=== PATIENT | female | born 1955 | race Two or more races ===

== ENCOUNTER 2016-05-19 19:15 | Emergency (ER) | payer MEDICAID, OTHER ==
[~2016-05-19] VITALS: Ht 162.6 cm; Wt 72.6 kg
[~2016-05-19 19:15] MED LIST: ALBUTEROL SULF8.5 GM INH; GUAIFENESIN AC473 ML ORAL; MEDROL DOSEPAK4 MG ORAL; TRAMADOL HCL50 MG ORAL; VENTOLIN HFA18 GM INH; ZITHROMAX250 MG ORAL
[2016-05-19] MEDS ORDERED: Augmentin 875mg Tab ORAL ONE (19:45)
[2016-05-19] MEDS ORDERED: Bacitracin Oint UD TOPIC ONE (19:45)
[2016-05-19] MEDS ORDERED: TdaP Vaccine 0.5ml Syr IM ONE (19:45)
[2016-05-19 20:02] VITALS: BP 135/79
--- NOTE | 2016-05-19 20:23 | Emergency Room Report ---
History of Present Illness General Chief Complaint: Animal Bite Present Illness HPI 61-year-old female presents emergency department complaining of localized 8/10 pain, swelling and erythema to the right thumb since yesterday status post dog bite. Patient states she was bit by an unknown dog. Patient does not know when her last tetanus vaccination was. Patient is right-hand dominant. Patient denies fevers or chills. Patient reports tenderness to the right thumb as well as bruising. Denies numbness tingling or loss of sensation or gross motor movements of the extremities, incontinence of bowel or bladder. Denies CP , Palpitations, LOC, AMS, dizziness, Changes in Vision, Sensation, paresthesias , or a sudden severe headache. (Jenny Nair P.AWen) Allergies: Coded Allergies: LATEX (Unverified Allergy, Unknown, rash, 04/21/15) Patient History Past Medical History: see triage record Past Surgical History: none Pertinent Family History: none Last Menstrual Period: 2003 Now: No : 2 Reviewed Nursing Documentation: PMH: Agreed, PSxH: Agreed (Jenny Nair) Nursing Documentation-PMH Hx Asthma: Yes History Of Psychiatric Problem: Yes - DEPRESSION (Jenny Nair PWenAWen) Review of Systems All Other Systems: negative except mentioned in HPI (Jenny Nair P.Ángela) Physical Exam Vital Signs Date Time Temp Pulse Resp B/P Pulse Ox O2 Delivery O2 Flow Rate FiO2 05/19/16 19:23 97.3 70 14 135/79 100 Room Air Sp02 EP Interpretation: reviewed, normal General Appearance: no apparent distress, alert, GCS 15, non-toxic Head: normocephalic, atraumatic Eyes: bilateral eye PERRL, bilateral eye normal inspection ENT: hearing grossly normal, normal pharynx, no angioedema, normal voice Neck: full range of motion, supple/symm/no masses Respiratory: lungs clear, normal breath sounds, speaking full sentences Cardiovascular #1: regular rate, rhythm, no edema Musculoskeletal: back normal, gait/station normal, normal range of motion, no calf tenderness, swelling - right thumb, tender - TTP to the right thumb and the base of the left thumb, bruising noted, two puncture wounds 0.5cm each, erythema and inflammation, FROM with pain. Neurologic: alert, oriented x3, responsive, motor strength/tone normal, sensory intact, speech normal Psychiatric: judgement/insight normal, memory normal, mood/affect normal, no suicidal/homicidal ideation Skin: no rash, warm/dry, well hydrated, other - left thumb: swelling, bruising noted, two puncture wounds 0.5cm each, erythema and inflammation, FROM with pain. Lymphatic: no adenopathy (Jenny Nair) Medical Decision Making PA Attestation Dr. Pruett is my supervising Physician whom patient management has been discussed with. (Jenny Nair PWenAWen) Diagnostic Impression: Primary Impression: Dog bite of finger Qualified Codes: S61.259A - Open bite of unspecified finger without damage to nail, initial encounter; W54.0XXA - Bitten by dog, initial encounter Additional Impression: Animal bite of right hand with infection Qualified Codes: S61.451A - Open bite of right hand, initial encounter; L08.9 - Local infection of the skin and subcutaneous tissue, unspecified ER Course 61-year-old female presents emergency department complaining of pain swelling and erythema to the right thumb since yesterday status post dog bite. Patient states she was bit by an unknown dog. Patient does not know when her last tetanus vaccination was. Patient is right-hand dominant. Patient denies fevers or chills. Patient reports tenderness to the right thumb as well as bruising Ddx considered but are not limited to Cellulitis, rabies, fracture, neurovascular compromise of extremity. Vital signs: are WNL, pt. is afebrile H&PE are most consistent with dog bite, mild infection. ORDERS: -High pressure wound irrigation - Xray Hand 3 views: No fracture, dislocation, or soft tissue injury per soft read in the ED by Dr. Pruett ED INTERVENTIONS: -Tetanus vaccination is administered. -Augmentin 875 PO - Bacitracin and light wound dressing applied by RN. - Documentation to report animal bite was filled out by Pt. and given to RN. * D/w pt. signs that wound indicate worsening of infection, that would require prompt return to the ED and IV ABX. - pt. verbalizes her understanding and agreement. DISCHARGE: At this time pt. is stable for d/c to home. Will provide printed patient care instructions, and any necessary prescriptions. Care plan and follow up instructions have been discussed with the patient prior to discharge. * Augmentin x 7 days. (Jenny Nair) ER Course Scribe documentation reviewed by me and is accurate. (Devan Pruett M.D.) Last Vital Signs Date Time Temp Pulse Resp B/P Pulse Ox O2 Delivery O2 Flow Rate FiO2 05/19/16 20:02 97.3 70 14 135/79 100 Room Air (Jenny Nair) Disposition: HOME, SELF-CARE Condition: Stable Scripts Ibuprofen* (MOTRIN*) 600 Mg Tablet 600 MG ORAL THREE TIMES A DAY, #30 TAB 0 Refills Prov: Jenny Nair 05/19/16 Amoxicillin/Potassium Clav 875-125* (AUGMENTIN 875-125 TABLET*) 1 Each Tablet 1 TAB ORAL TWICE A DAY for 7 Days, #14 TAB Prov: Jenny Nair 05/19/16 Patient Instructions: Animal Bite Additional Instructions: Take medications as directed. Follow up with PCP in 3-5 days Return sooner to ED if new symptoms occur, or current symptoms become worse. - Please note that this Emergency Department Report was dictated using [employer] analyst technology software, occasionally this can lead to erroneous entry secondary to interpretation by the dictation equipment. Jenny Nair May 19, 2016 20:23 Devan Pruett M.D. May 23, 2016 01:24
[2016-05-19] MEDS ORDERED: AUGMENTIN 875-1 EAC1 ORAL (20:47)
[2016-05-19] MEDS ORDERED: IBUPROFEN600 MG ORAL (20:47)
[2016-05-19 21:12] VITALS: BP 135/79
--- NOTE | 2016-05-20 12:28 | Diagnostic Imaging Report ---
Indication: PAIN Technique: 3 views right hand Comparison: none Findings: No acute fractures. There is equivocal slight subluxation of the first interphalangeal joint. Ossific density adjacent to the first proximal phalanx appears corticated, is probably old, may reflect prior injury. The joint spaces are preserved. Impression: No acute bony trauma Equivocal slight subluxation of the first interphalangeal joint.
== END 2016-05-19 21:13 | disposition home or self-care (01) ==
LOC: EMR 19:55
DX: S61.031A Puncture wound without foreign body of right thumb without damage to nail, initial encounter (principal); W54.0XXA Bitten by dog, initial encounter; Y92.9 Unspecified place or not applicable; Z23 Encounter for immunization; J45.909 Unspecified asthma, uncomplicated; F32.9 Major depressive disorder, single episode, unspecified; Z91.040 Latex allergy status
CPT/HCPCS: 90471; 90715; 99284

== ENCOUNTER 2017-03-31 20:04 | Inpatient (IN) | payer MEDICAID ==
[~2017-03-31] VITALS: Ht 162.6 cm; Wt 74.8 kg
[~2017-03-31 20:04] MED LIST changes: +AUGMENTIN 875-1 EAC1 ORAL; +IBUPROFEN600 MG ORAL
[2017-03-31] MEDS ORDERED: Sodium Chloride 500ML 500 ML IV ONE (20:58)
[2017-03-31 21:00] VITALS: BP 123/82
[2017-03-31] MEDS ORDERED: Morphine Sulfate 4mg/ml Inj IVP ONE (21:00)
--- NOTE | 2017-03-31 21:44 | Emergency Room Report ---
History of Present Illness General Chief Complaint: Abdominal Pain Source: Patient Present Illness HPI 61-year-old female presents ED complaining of left-sided abdominal pain started 3 days ago. Pain is a 10 out of 10. sharp. nonradating. Denies fevers chills. Denies chest pain or shortness of breath. Denies vomiting or diarrhea. No other aggravating or leading factors. Denies any other associated Allergies: Coded Allergies: LATEX (Unverified Allergy, Unknown, rash, 04/21/15) Patient History Past Medical History: asthma Past Surgical History: none Pertinent Family History: none Social History: Denies: smoking, alcohol use, drug use Last Menstrual Period: NA Now: No Immunizations: UTD Reviewed Nursing Documentation: PMH: Agreed, PSxH: Agreed Nursing Documentation-PMH Hx Asthma: Yes Review of Systems All Other Systems: negative except mentioned in HPI Physical Exam Vital Signs Date Time Temp Pulse Resp B/P (MAP) Pulse Ox O2 Delivery O2 Flow Rate FiO2 03/31/17 20:22 98.1 65 18 123/82 98 Room Air Sp02 EP Interpretation: reviewed, normal General Appearance: no apparent distress, alert, GCS 15, non-toxic Head: normocephalic Eyes: bilateral eye normal inspection, bilateral eye PERRL ENT: normal ENT inspection Neck: normal inspection Respiratory: chest non-tender, lungs clear, normal breath sounds, speaking full sentences Cardiovascular #1: regular rate, rhythm, no edema Gastrointestinal: normal bowel sounds, soft, non-distended, no guarding, no rebound, tenderness - LUQ Rectal: deferred Genitourinary: CVA tenderness (L) Musculoskeletal: normal inspection Neurologic: alert, oriented x3, responsive, motor strength/tone normal, sensory intact, speech normal Psychiatric: normal inspection Skin: normal inspection Lymphatic: normal inspection Medical Decision Making Diagnostic Impression: Primary Impression: Internal hernia Additional Impressions: Abdominal pain Qualified Codes: R10.9 - Unspecified abdominal pain S/P gastric bypass ER Course Hospital Course 61-year-old female presents to ED complaining of abdominal pain Differential diagnoses include: BPH, cystitis, pyelonephritis, kidney stone Clinical course Patient placed on stretcher. traffic monitor specialist. After initial history and physical I ordered labs, IV fluids, UA, pain medication and CT scan Labs - no leukocytosis, Hb/Hct stable, electrolytes ok CT abdomen and pelvis - s/p gastric bypass, evidence of internal hernia. dilated segments of bowel discussed findings with Dr. Jose (surgery); agrees that patient requires admission - will consult patient made NPO Case discussed with Dr. Hernandez and he agreed to accept the patient to his service for further care and support I feel this is a highly complex case requiring extensive working including EKG/ Rhythm strip, Xray/CT/US, Blood/urine lab work, repeat exams while in ED, and administration of strong opiates/narcotics for pain control, admission to hospital or close patient follow up. Diagnosis - internal hernia, abdominal pain, s/p gastric bypass Patient admitted to floor in serious condition Labs Test 03/31/17 20:25 03/31/17 21:56 Urine Color Pale yellow Urine Appearance Clear Urine pH 5 (4.5-8.0) Urine Specific [place] 1.020 (1.005-1.035) Urine Protein Negative (NEGATIVE) Urine Glucose (UA) Negative (NEGATIVE) Urine Ketones Negative (NEGATIVE) Urine Occult Blood Negative (NEGATIVE) Urine Nitrite Negative (NEGATIVE) Urine Bilirubin Negative (NEGATIVE) Urine Urobilinogen Normal MG/DL (0.0-1.0) Urine Leukocyte Esterase 2+ (NEGATIVE) Urine RBC 2-4 /HPF (0 - 2) Urine WBC 5-10 /HPF (0 - 2) Urine Squamous Epithelial Cells Few /LPF (NONE/OCC) Urine Bacteria Few /HPF (NONE) White Blood Count 9.4 K/UL (4.8-10.8) Red Blood Count 4.56 M/UL (4.20-5.40) Hemoglobin 13.6 G/DL (12.0-16.0) Hematocrit 44.7 % (37.0-47.0) Mean Corpuscular Volume 98 FL (80-99) Mean Corpuscular Hemoglobin 29.9 PG (27.0-31.0) Mean Corpuscular Hemoglobin Concent 30.5 G/DL (32.0-36.0) Red Cell Distribution Width 11.8 % (11.6-14.8) Platelet Count 255 K/UL (150-450) Mean Platelet Volume 7.5 FL (6.5-10.1) Neutrophils (%) (Auto) 45.5 % (45.0-75.0) Lymphocytes (%) (Auto) 41.4 % (20.0-45.0) Monocytes (%) (Auto) 7.2 % (1.0-10.0) Eosinophils (%) (Auto) 4.3 % (0.0-3.0) Basophils (%) (Auto) 1.6 % (0.0-2.0) Sodium Level 140 MMOL/L (136-145) Potassium Level 3.8 MMOL/L (3.5-5.1) Chloride Level 107 MMOL/L (98-107) Carbon Dioxide Level 24 MMOL/L (21-32) Anion Gap 9 mmol/L (5-15) Blood Urea Nitrogen 19 mg/dL (7-18) Creatinine 0.8 MG/DL (0.55-1.30) Estimat Glomerular Filtration Rate > 60 mL/min (>60) Glucose Level 95 MG/DL (74-106) Calcium Level 8.5 MG/DL (8.5-10.1) Total Bilirubin 0.3 MG/DL (0.2-1.0) Aspartate Amino Transf (AST/SGOT) 23 U/L (15-37) Alanine Aminotransferase (ALT/SGPT) 35 U/L (12-78) Alkaline Phosphatase 105 U/L (46-116) Total Protein 7.4 G/DL (6.4-8.2) Albumin 4.1 G/DL (3.4-5.0) Globulin 3.3 g/dL Albumin/Globulin Ratio 1.2 (1.0-2.7) Lipase 137 U/L (73-393) CT/MRI/US Diagnostic Results CT/MRI/US Diagnostic Results : Imaging Test Ordered: CT A/P Impression Surgical changes of gastric bypass. Abnormal positioning of bowel suggested by location of enteric enteric anastomosis which is seen near midline and to the right. On image 23 coronal, suggestion of stretching of mesentery/mesenteric vessels. These findings are suspicious for internal hernia. There are some mildly distended small bowel segments. No high-grade obstruction seen at this time. Last Vital Signs Date Time Temp Pulse Resp B/P (MAP) Pulse Ox O2 Delivery O2 Flow Rate FiO2 03/31/17 20:22 98.1 65 18 123/82 98 Room Air Status: improved Disposition: ADMITTED INPATIENT Condition: Serious Referrals: [facility],REFERRING (PCP) WALESKA MERLOS M.D. Mar 31, 2017 21:44
[2017-03-31 22:00] VITALS: BP 126/78
[2017-03-31 22:12] LABS: BASOPHILS % (AUTO) 1.6 % (0.0-2.0); EOSINOPHILS % (AUTO) 4.3 % (0.0-3.0); HEMATOCRIT 44.7 % (37.0-47.0); HEMOGLOBIN 13.6 G/DL (12.0-16.0); LYMPHOCYTES % (AUTO) 41.4 % (20.0-45.0); MEAN CORPUSCULAR VOLUME 98 FL (80-99); MONOCYTES % (AUTO) 7.2 % (1.0-10.0); NEUTROPHILS % (AUTO) 45.5 % (45.0-75.0); PLATELET COUNT 255 K/UL (150-450); RED BLOOD COUNT 4.56 M/UL (4.20-5.40); RED CELL DISTRIBUTION WIDTH 11.8 % (11.6-14.8); WHITE BLOOD COUNT 9.4 K/UL (4.8-10.8)
[2017-03-31 22:15] LABS: APPEARANCE,URINE CLEAR; BILIRUBIN, URINE NEGATIVE (NEGATIVE); COLOR,URINE PALE YELLOW; GLUCOSE, URINE (UA) NEGATIVE (NEGATIVE); KETONES,URINE NEGATIVE (NEGATIVE); LEUKOCYTE ESTERASE ,URINE 2+ (NEGATIVE); NITRITE,URINE NEGATIVE (NEGATIVE); PH,URINE 5 (4.5-8.0); PROTEIN,URINE NEGATIVE (NEGATIVE); UROBILINOGEN,URINE NORMAL MG/DL (0.0-1.0)
[2017-03-31 22:30] LABS: ANION GAP 9 mmol/L (5-15); BLOOD UREA NITROGEN 19 mg/dL (7-18); CALCIUM 8.5 MG/DL (8.5-10.1); CARBON DIOXIDE 24 MMOL/L (21-32); CHLORIDE 107 MMOL/L (98-107); CREATININE 0.8 MG/DL (0.55-1.30); POTASSIUM 3.8 MMOL/L (3.5-5.1); SODIUM 140 MMOL/L (136-145)
[2017-03-31 22:35] LABS: ALANINE AMINOTRANSFERASE 35 U/L (12-78); ALBUMIN 4.1 G/DL (3.4-5.0); ALBUMIN/GLOBULIN RATIO 1.2 (1.0-2.7); ALKALINE PHOSPHATASE 105 U/L (46-116); ASPARTATE AMINO TRANSFERASE 23 U/L (15-37); BILIRUBIN,TOTAL 0.3 MG/DL (0.2-1.0)
[2017-03-31 23:00] VITALS: BP 122/78
[2017-04-01] VITALS (8 sets, daily range): BP systolic 103–126; BP diastolic 54–75
[2017-04-01] MEDS ORDERED: NKM (02:09)
[2017-04-01] MEDS ORDERED: Ketorolac 30mg Inj IV ONE (02:30)
[2017-04-01] MEDS ORDERED: Morphine Sulfate 4mg/ml Inj IVP ONE (02:30)
[2017-04-01] MEDS ORDERED: Nitroglycerin Subl 0.4mg tab SL PRN (07:45)
[2017-04-01] MEDS ORDERED: Mylanta II UD 30ml ORAL PRN (07:45)
[2017-04-01] MEDS ORDERED: Miralax 17gm pkt ORAL PRN (07:45)
[2017-04-01] MEDS ORDERED: Metoclopramide 10mg/2ml Inj IVP PRN (07:45)
[2017-04-01] MEDS ORDERED: LORazepam Inj 2mg/ml 1ml IV PRN (07:45)
[2017-04-01] MEDS: D5 1/2NS 1,000 ML IV SCH ×2 (08:06→21:56)
[2017-04-01] MEDS: Pantoprazole Inj IV SCH (08:06)
[2017-04-01] MEDS: Morphine Sulfate 2mg/ml Inj IVP PRN ×4 (08:07→22:19)
[2017-04-01] MEDS: Heparin 5000 units/ml inj SUBQ SCH ×2 (08:17→21:55)
[2017-04-01] MEDS ORDERED: Bupivacaine 0.5% Inj 30 ml vial INJ ONE (10:00)
--- NOTE | 2017-04-01 12:15 | History and Physical ---
History of Present Illness General Date patient seen: Apr 01, 2017 Time patient seen: 11:30 Reason for Hospitalization: Abdominal Pain Present Illness HPI 61-y/ old female with PMH of gastric bypass and asthma presented to ED complaining of left-sided abdominal pain x 3 days Pain described as sharp, nonradiating, 10 out of 10 on a scale 1 to 10 Denied f/c/ Denied CP, SOB Denied n/v/diarrhea . Workup in ED revealed stable VS no leucocytosis stable HH, lytes UA+ pyuria, but only few bacteria CT A/P with evidence of gastric bypass, internal hernia. dilated segments of bowel surgeon contacted patient was made NPO and was admitted for further management Allergies: Coded Allergies: LATEX (Unverified Allergy, Unknown, rash, 04/21/15) Medication History Scheduled Albuterol Sulfate* (Albuterol Sulfate Mdi*), 2 PUFF INH Q3H Amoxicillin/Potassium Clav 875-125* (Augmentin 875-125 Tablet*), 1 TAB ORAL TWICE A DAY Azithromycin* (Zithromax*), 250 MG ORAL DAILY Ibuprofen* (Motrin*), 600 MG ORAL THREE TIMES A DAY Methylprednisolone (Methylprednisolone*), 4 MG ORAL .as directed No Known Medications* (NKM - No Known Medications*), 0 ., (Reported) Scheduled PRN Albuterol Sulfate (Ventolin Hfa), 2 PUFFS INH EVERY 6 HOURS PRN for Shortness of Breath, (Reported) Guaifenesin/Codeine Phosphate (Guaifenesin Ac Cough Syrup), 1 TSP ORAL Q6H PRN for For Cough Tramadol Hcl* (Ultram*), 50 MG ORAL Q6H PRN for For Pain Patient History History Provided By: Patient Healthcare decision maker Resuscitation status Full Code Advanced Directive on File No Past Medical/Surgical History Past Medical/Surgical History: (1) History of gastric bypass (2) Asthma Review of Systems Constitutional: Reports: weakness Eye: Reports: no symptoms ENT: Reports: no symptoms Respiratory: Reports: no symptoms Cardiovascular: Reports: no symptoms Gastrointestinal: Reports: see HPI Genitourinary: Reports: no symptoms Musculoskeletal: Reports: no symptoms Skin: Reports: no symptoms Psychiatric: Reports: no symptoms Neurological: Reports: no symptoms Endocrine: Reports: no symptoms Hematologic/Lymphatic: Reports: no symptoms Physical Exam General Appearance: WD/WN, no apparent distress, alert Lines, tubes and drains: peripheral HEENT: normocephalic, atraumatic, anicteric Neck: non-tender, supple Respiratory/Chest: chest wall non-tender, lungs clear, no respiratory distress Cardiovascular/Chest: normal peripheral pulses, normal rate, no JVD Abdomen: normal bowel sounds, soft - TTP left side of abdomen , no rebound, no guarding Extremities: normal range of motion, non-tender, no calf tenderness, normal capillary refill Skin Exam: normal pigmentation, warm/dry Last 24 Hour Vital Signs Date Time Temp Pulse Resp B/P (MAP) Pulse Ox O2 Delivery O2 Flow Rate FiO2 04/01/17 08:37 97.3 04/01/17 08:00 98.5 60 20 123/64 99 Room Air 04/01/17 04:00 97.3 53 20 110/65 96 Room Air 04/01/17 02:42 97.3 04/01/17 02:42 97.3 04/01/17 02:42 97.3 90 16 126/75 99 Room Air 04/01/17 02:05 98.8 90 16 126/75 99 Room Air 04/01/17 01:05 98.7 86 16 121/75 99 Room Air 04/01/17 00:02 98.4 84 16 126/75 98 Room Air 03/31/17 23:00 98.6 82 16 122/78 99 Room Air 03/31/17 22:41 98.1 03/31/17 22:00 98.2 84 18 126/78 98 Room Air 03/31/17 21:00 98.1 88 18 123/82 98 Room Air 03/31/17 20:22 98.1 65 18 123/82 98 Room Air Intake and Output 03/31/17 04/01/17 19:00 07:00 Intake Total 500 ml Output Total 0 ml Balance 500 ml Intake IV Total 500 ml Other 0 ml Output Urine Total 0 ml Laboratory Tests Test 03/31/17 20:25 03/31/17 21:56 Urine Color Pale yellow Urine Appearance Clear Urine pH 5 (4.5-8.0) Urine Specific [place] 1.020 (1.005-1.035) Urine Protein Negative (NEGATIVE) Urine Glucose (UA) Negative (NEGATIVE) Urine Ketones Negative (NEGATIVE) Urine Occult Blood Negative (NEGATIVE) Urine Nitrite Negative (NEGATIVE) Urine Bilirubin Negative (NEGATIVE) Urine Urobilinogen Normal MG/DL (0.0-1.0) Urine Leukocyte Esterase 2+ (NEGATIVE) H Urine RBC 2-4 /HPF (0 - 2) H Urine WBC 5-10 /HPF (0 - 2) H Urine Squamous Epithelial Cells Few /LPF (NONE/OCC) Urine Bacteria Few /HPF (NONE) White Blood Count 9.4 K/UL (4.8-10.8) Red Blood Count 4.56 M/UL (4.20-5.40) Hemoglobin 13.6 G/DL (12.0-16.0) Hematocrit 44.7 % (37.0-47.0) Mean Corpuscular Volume 98 FL (80-99) Mean Corpuscular Hemoglobin 29.9 PG (27.0-31.0) Mean Corpuscular Hemoglobin Concent 30.5 G/DL (32.0-36.0) L Red Cell Distribution Width 11.8 % (11.6-14.8) Platelet Count 255 K/UL (150-450) Mean Platelet Volume 7.5 FL (6.5-10.1) Neutrophils (%) (Auto) 45.5 % (45.0-75.0) Lymphocytes (%) (Auto) 41.4 % (20.0-45.0) Monocytes (%) (Auto) 7.2 % (1.0-10.0) Eosinophils (%) (Auto) 4.3 % (0.0-3.0) H Basophils (%) (Auto) 1.6 % (0.0-2.0) Sodium Level 140 MMOL/L (136-145) Potassium Level 3.8 MMOL/L (3.5-5.1) Chloride Level 107 MMOL/L (98-107) Carbon Dioxide Level 24 MMOL/L (21-32) Anion Gap 9 mmol/L (5-15) Blood Urea Nitrogen 19 mg/dL (7-18) H Creatinine 0.8 MG/DL (0.55-1.30) Estimat Glomerular Filtration Rate > 60 mL/min (>60) Glucose Level 95 MG/DL (74-106) Calcium Level 8.5 MG/DL (8.5-10.1) Total Bilirubin 0.3 MG/DL (0.2-1.0) Aspartate Amino Transf (AST/SGOT) 23 U/L (15-37) Alanine Aminotransferase (ALT/SGPT) 35 U/L (12-78) Alkaline Phosphatase 105 U/L (46-116) Total Protein 7.4 G/DL (6.4-8.2) Albumin 4.1 G/DL (3.4-5.0) Globulin 3.3 g/dL Albumin/Globulin Ratio 1.2 (1.0-2.7) Lipase 137 U/L (73-393) Height (Feet): 5 Height (Inches): 4.00 Weight (Pounds): 165 Medications Current Medications Medications (Trade) Dose Ordered Sig/Lorna Route PRN Reason Start Time Stop Time Status Last Admin Dose Admin Acetaminophen (Tylenol) 650 mg Q4H PRN ORAL fever 04/01/17 07:45 05/01/17 07:44 Al Hydroxide/Mg Hydroxide (Mylanta II) 30 ml Q6H PRN ORAL dyspepsia 04/01/17 07:45 05/01/17 07:44 Dextrose (Dextrose 50%) STAT PRN IV Hypoglycemia 04/01/17 07:45 05/01/17 07:44 Dextrose/Sodium Chloride 1,000 ml @ 75 mls/hr [id number] IV 04/01/17 08:30 05/01/17 08:29 04/01/17 08:06 Diphenhydramine HCl (Benadryl) 25 mg Q6H PRN ORAL Itching/Pruritis 04/01/17 07:45 05/01/17 07:44 Heparin Sodium (Porcine) (Heparin 5000 units/ml) 5,000 units EVERY 12 HOURS SUBQ 04/01/17 09:00 05/01/17 08:59 04/01/17 08:17 Lorazepam (Ativan 2mg/ml 1ml) 1 mg EVERY 4 HOURS PRN IV agitation 04/01/17 07:45 04/08/17 07:44 Metoclopramide HCl (Reglan) 10 mg EVERY 6 HOURS PRN IVP servere nauasea 04/01/17 07:45 05/01/17 07:44 Morphine Sulfate (Morphine Sulfate) 2 mg EVERY 4 HOURS PRN IVP severe Pain (Pain Scale 7-10) 04/01/17 07:45 04/08/17 07:44 04/01/17 08:07 Nitroglycerin (Ntg) 0.4 mg Q5M X 3 DOSES PRN SL Prn Chest Pain 04/01/17 07:45 05/01/17 07:44 Ondansetron HCl (Zofran) 4 mg Q6H PRN IVP Nausea & Vomiting 04/01/17 07:45 05/01/17 07:44 Pantoprazole (Protonix) 40 mg DAILY IV 04/01/17 09:00 05/01/17 08:59 04/01/17 08:06 Polyethylene Glycol (Miralax) 17 gm HSPRN PRN ORAL Constipation 04/01/17 07:45 05/01/17 07:44 Promethazine HCl (Phenergan) 25 mg EVERY 8 HOURS PRN IV refractory nausea 04/01/17 07:45 05/01/17 07:44 Temazepam (Restoril) 15 mg HSPRN PRN ORAL Insomnia 04/01/17 07:45 04/08/17 07:44 Assessment/Plan Assessment/Plan ASSESSMENT possible internal hernia abdominal pain hx of gastric bypass asthma PLAN OF CARE MS floor patient seen and examined by surgeon per surgery not internal hernia, Bupivacaine applied topically pain management a/emetic prn IVF NPP DVT/GI prophayxlis O2 HHN prn, resp status stable case discussed and evaluated by supervising physician Ashu ([facility] Chavez NP Apr 01, 2017 12:15
[2017-04-02 00:34] VITALS: BP 95/55
[2017-04-02 04:56] VITALS: BP 98/57
[2017-04-02 07:28] LABS: BASOPHILS % (AUTO) 0.7 % (0.0-2.0); EOSINOPHILS % (AUTO) 3.9 % (0.0-3.0); HEMATOCRIT 37.6 % (37.0-47.0); HEMOGLOBIN 12.3 G/DL (12.0-16.0); LYMPHOCYTES % (AUTO) 28.8 % (20.0-45.0); MEAN CORPUSCULAR VOLUME 99 FL (80-99); MONOCYTES % (AUTO) 7.8 % (1.0-10.0); NEUTROPHILS % (AUTO) 58.7 % (45.0-75.0); PLATELET COUNT 211 K/UL (150-450); RED BLOOD COUNT 3.81 M/UL (4.20-5.40); RED CELL DISTRIBUTION WIDTH 12.2 % (11.6-14.8); WHITE BLOOD COUNT 5.8 K/UL (4.8-10.8)
[2017-04-02 07:45] LABS: ALANINE AMINOTRANSFERASE 81 U/L (12-78); ALBUMIN 3.2 G/DL (3.4-5.0); ALBUMIN/GLOBULIN RATIO 1.1 (1.0-2.7); ALKALINE PHOSPHATASE 93 U/L (46-116); AMYLASE 40 U/L (25-115); ANION GAP 8 mmol/L (5-15); ASPARTATE AMINO TRANSFERASE 48 U/L (15-37); BILIRUBIN,TOTAL 0.4 MG/DL (0.2-1.0); BLOOD UREA NITROGEN 9 mg/dL (7-18); CALCIUM 7.3 MG/DL (8.5-10.1); CARBON DIOXIDE 25 MMOL/L (21-32); CHLORIDE 108 MMOL/L (98-107); CREATININE 0.7 MG/DL (0.55-1.30); POTASSIUM 3.6 MMOL/L (3.5-5.1); SODIUM 140 MMOL/L (136-145)
[2017-04-02 08:00] VITALS: BP 90/53
[2017-04-02] MEDS: Morphine Sulfate 2mg/ml Inj IVP PRN (08:39)
[2017-04-02] MEDS: Pantoprazole Inj IV SCH (08:40)
[2017-04-02] MEDS: Heparin 5000 units/ml inj SUBQ SCH ×2 (08:41→22:03)
[2017-04-02] MEDS: D5 1/2NS 1,000 ML IV SCH (11:08)
--- NOTE | 2017-04-02 11:29 | General Surgery Progress Note ---
General Surgery-Progress Note Subjective Symptoms: pain same Objective Last 24 Hour Vital Signs Date Time Temp Pulse Resp B/P (MAP) Pulse Ox O2 Delivery O2 Flow Rate FiO2 04/02/17 09:09 98.4 04/02/17 08:00 98.2 60 16 90/53 100 Room Air 04/02/17 04:56 98.4 57 18 98/57 95 04/02/17 00:34 98.2 60 17 95/55 95 04/02/17 00:30 Room Air 04/01/17 20:00 97.3 53 18 112/65 98 Room Air 04/01/17 16:00 98.7 78 18 120/64 98 Room Air 04/01/17 12:42 98.1 58 18 103/54 98 Room Air I&O Intake and Output 04/01/17 04/02/17 19:00 07:00 Intake Total 750 ml 900 ml Balance 750 ml 900 ml Intake IV Total 750 ml 900 ml # Voids 3 Respiratory: clear Abdomen: soft, flat, non-tender, other - localized tenderness at tip of left 10th rib Extremities: no tenderness Laboratory Tests Test 04/02/17 04:50 White Blood Count 5.8 K/UL (4.8-10.8) Red Blood Count 3.81 M/UL (4.20-5.40) L Hemoglobin 12.3 G/DL (12.0-16.0) Hematocrit 37.6 % (37.0-47.0) Mean Corpuscular Volume 99 FL (80-99) Mean Corpuscular Hemoglobin 32.4 PG (27.0-31.0) H Mean Corpuscular Hemoglobin Concent 32.8 G/DL (32.0-36.0) Red Cell Distribution Width 12.2 % (11.6-14.8) Platelet Count 211 K/UL (150-450) Mean Platelet Volume 7.8 FL (6.5-10.1) Neutrophils (%) (Auto) 58.7 % (45.0-75.0) Lymphocytes (%) (Auto) 28.8 % (20.0-45.0) Monocytes (%) (Auto) 7.8 % (1.0-10.0) Eosinophils (%) (Auto) 3.9 % (0.0-3.0) H Basophils (%) (Auto) 0.7 % (0.0-2.0) Activated Partial Thromboplast Time 29 SEC (23-33) Sodium Level 140 MMOL/L (136-145) Potassium Level 3.6 MMOL/L (3.5-5.1) Chloride Level 108 MMOL/L (98-107) H Carbon Dioxide Level 25 MMOL/L (21-32) Anion Gap 8 mmol/L (5-15) Blood Urea Nitrogen 9 mg/dL (7-18) Creatinine 0.7 MG/DL (0.55-1.30) Estimat Glomerular Filtration Rate > 60 mL/min (>60) Glucose Level 95 MG/DL (74-106) Calcium Level 7.3 MG/DL (8.5-10.1) L Total Bilirubin 0.4 MG/DL (0.2-1.0) Aspartate Amino Transf (AST/SGOT) 48 U/L (15-37) H Alanine Aminotransferase (ALT/SGPT) 81 U/L (12-78) H Alkaline Phosphatase 93 U/L (46-116) Total Protein 6.0 G/DL (6.4-8.2) L Albumin 3.2 G/DL (3.4-5.0) L Globulin 2.8 g/dL Albumin/Globulin Ratio 1.1 (1.0-2.7) Amylase Level 40 U/L (25-115) Lipase 96 U/L (73-393) Assessment Additional Comments pain left flank Plan Additional Comments area was infiltrated with marcain and depo-medrol KARISSA KAY Apr 02, 2017 11:29
[2017-04-02] MEDS ORDERED: Depo-Medrol 80mg Vial IM ONE (11:30)
[2017-04-02] MEDS ORDERED: Depo-Medrol 40mg Inj IARTIC ONE (11:30)
[2017-04-02 12:00] VITALS: BP 107/59
--- NOTE | 2017-04-02 13:01 | General Progress Note ---
Assessment/Plan Problem List: (1) Asthma ICD Codes: J45.909 - Unspecified asthma, uncomplicated SNOMED: 643020988 (2) Abdominal pain ICD Codes: R10.9 - Unspecified abdominal pain SNOMED: 00576908, 95177528, 246674196, 744922691 Qualifiers: Qualified Codes: R10.9 - Unspecified abdominal pain (3) Internal hernia ICD Codes: K45.8 - Other specified abdominal hernia without obstruction or gangrene SNOMED: 99245870 (4) S/P gastric bypass ICD Codes: Z98.84 - Bariatric surgery status SNOMED: 709079740, 94340582, 759559837, [id number] Assessment/Plan no alarming sign and symptoms eating per surgery recs hold GI procedures for now Subjective ROS Limited/Unobtainable: Yes Allergies: Coded Allergies: LATEX (Unverified Allergy, Unknown, rash, 04/21/15) Subjective eating lots of family members around Objective Last 24 Hour Vital Signs Date Time Temp Pulse Resp B/P (MAP) Pulse Ox O2 Delivery O2 Flow Rate FiO2 04/02/17 09:09 98.4 04/02/17 08:00 98.2 60 16 90/53 100 Room Air 04/02/17 04:56 98.4 57 18 98/57 95 04/02/17 00:34 98.2 60 17 95/55 95 04/02/17 00:30 Room Air 04/01/17 20:00 97.3 53 18 112/65 98 Room Air 04/01/17 16:00 98.7 78 18 120/64 98 Room Air Intake and Output 04/01/17 04/02/17 19:00 07:00 Intake Total 750 ml 900 ml Balance 750 ml 900 ml Intake IV Total 750 ml 900 ml # Voids 3 Laboratory Tests 04/02/17 04:50: White Blood Count 5.8, Red Blood Count 3.81L, Hemoglobin 12.3, Hematocrit 37.6, Mean Corpuscular Volume 99, Mean Corpuscular Hemoglobin 32.4H, Mean Corpuscular Hemoglobin Concent 32.8, Red Cell Distribution Width 12.2, Platelet Count 211, Mean Platelet Volume 7.8, Neutrophils (%) (Auto) 58.7, Lymphocytes (%) (Auto) 28.8, Monocytes (%) (Auto) 7.8, Eosinophils (%) (Auto) 3.9H, Basophils (%) (Auto ) 0.7, Activated Partial Thromboplast Time 29, Sodium Level 140, Potassium Level 3.6, Chloride Level 108H, Carbon Dioxide Level 25, Anion Gap 8, Blood Urea Nitrogen 9, Creatinine 0.7, Estimat Glomerular Filtration Rate > 60, Glucose Level 95, Calcium Level 7.3L, Total Bilirubin 0.4, Aspartate Amino Transf (AST/SGOT) 48H, Alanine Aminotransferase (ALT/SGPT) 81H, Alkaline Phosphatase 93, Total Protein 6.0L, Albumin 3.2L, Globulin 2.8, Albumin/ Globulin Ratio 1.1, Amylase Level 40, Lipase 96 Height (Feet): 5 Height (Inches): 4.00 Weight (Pounds): 165 General Appearance: no apparent distress EENT: normal ENT inspection Neck: normal alignment Cardiovascular: normal rate Respiratory/Chest: lungs clear Abdomen: normal bowel sounds, non tender, soft Extremities: non-tender GWENDOLYN GARNETT Apr 02, 2017 13:01
--- NOTE | 2017-04-02 15:18 | Pulmonology Progress Note ---
Assessment/Plan Assessment/Plan ASSESSMENT possible internal hernia abdominal pain hx of gastric bypass asthma PLAN OF CARE MS floor patient seen and examined by surgeon per surgery not internal hernia, Bupivacaine applied /6 and again today area was infiltrated with Marcaine and depo-medrol no surgical interventions start diet as tolerated- per surg recommendations GI seen and evaluated; no alarming signs, no need for GI procedures ; fup with surgery rec pain management a/emetic prn IVF DVT/GI prophayxlis O2 HHN prn, resp status stable case discussed and evaluated by supervising physician Subjective Allergies: Coded Allergies: LATEX (Unverified Allergy, Unknown, rash, 04/21/15) Subjective still c/o abdominal pain no nausea 1 episode of vomiting last night, non bloody nonbilious afebrile, no leukocytosis passing gas Objective Last 24 Hour Vital Signs Date Time Temp Pulse Resp B/P (MAP) Pulse Ox O2 Delivery O2 Flow Rate FiO2 04/02/17 12:00 98.2 71 18 107/59 100 Room Air 04/02/17 09:09 98.4 04/02/17 08:00 98.2 60 16 90/53 100 Room Air 04/02/17 04:56 98.4 57 18 98/57 95 04/02/17 00:34 98.2 60 17 95/55 95 04/02/17 00:30 Room Air 04/01/17 20:00 97.3 53 18 112/65 98 Room Air 04/01/17 16:00 98.7 78 18 120/64 98 Room Air Intake and Output 04/01/17 04/02/17 19:00 07:00 Intake Total 750 ml 900 ml Balance 750 ml 900 ml Intake IV Total 750 ml 900 ml # Voids 3 Objective General Appearance: WD/WN, no apparent distress, alert Lines, tubes and drains: peripheral HEENT: normocephalic, atraumatic, anicteric Neck: non-tender, supple Respiratory/Chest: chest wall non-tender, lungs clear, no respiratory distress Cardiovascular/Chest: normal peripheral pulses, normal rate, no JVD Abdomen: normal bowel sounds, soft - TTP left side of abdomen , no rebound, no guarding Extremities: normal range of motion, non-tender, no calf tenderness, normal capillary refill Skin Exam: normal pigmentation, warm/dry Laboratory Tests 04/02/17 04:50: White Blood Count 5.8, Red Blood Count 3.81L, Hemoglobin 12.3, Hematocrit 37.6, Mean Corpuscular Volume 99, Mean Corpuscular Hemoglobin 32.4H, Mean Corpuscular Hemoglobin Concent 32.8, Red Cell Distribution Width 12.2, Platelet Count 211, Mean Platelet Volume 7.8, Neutrophils (%) (Auto) 58.7, Lymphocytes (%) (Auto) 28.8, Monocytes (%) (Auto) 7.8, Eosinophils (%) (Auto) 3.9H, Basophils (%) (Auto ) 0.7, Activated Partial Thromboplast Time 29, Sodium Level 140, Potassium Level 3.6, Chloride Level 108H, Carbon Dioxide Level 25, Anion Gap 8, Blood Urea Nitrogen 9, Creatinine 0.7, Estimat Glomerular Filtration Rate > 60, Glucose Level 95, Calcium Level 7.3L, Total Bilirubin 0.4, Aspartate Amino Transf (AST/SGOT) 48H, Alanine Aminotransferase (ALT/SGPT) 81H, Alkaline Phosphatase 93, Total Protein 6.0L, Albumin 3.2L, Globulin 2.8, Albumin/ Globulin Ratio 1.1, Amylase Level 40, Lipase 96 Current Medications Medications (Trade) Dose Ordered Sig/Lorna Route PRN Reason Start Time Stop Time Status Last Admin Dose Admin Acetaminophen (Tylenol) 650 mg Q4H PRN ORAL fever 04/02/17 07:45 05/02/17 07:44 Al Hydroxide/Mg Hydroxide (Mylanta II) 30 ml Q6H PRN ORAL dyspepsia 04/01/17 07:45 05/01/17 07:44 Dextrose (Dextrose 50%) STAT PRN IV Hypoglycemia 04/01/17 07:45 05/01/17 07:44 Dextrose/Sodium Chloride 1,000 ml @ 75 mls/hr [id number] IV 04/01/17 08:30 05/01/17 08:29 04/02/17 11:08 Diphenhydramine HCl (Benadryl) 25 mg Q6H PRN ORAL Itching/Pruritis 04/01/17 07:45 05/01/17 07:44 Heparin Sodium (Porcine) (Heparin 5000 units/ml) 5,000 units EVERY 12 HOURS SUBQ 04/01/17 09:00 05/01/17 08:59 04/02/17 08:41 Lorazepam (Ativan 2mg/ml 1ml) 1 mg EVERY 4 HOURS PRN IV agitation 04/01/17 07:45 04/08/17 07:44 Metoclopramide HCl (Reglan) 10 mg EVERY 6 HOURS PRN IVP serverlacey camiloa 04/01/17 07:45 05/01/17 07:44 Morphine Sulfate (Morphine Sulfate) 2 mg EVERY 4 HOURS PRN IVP severe Pain (Pain Scale 7-10) 04/01/17 07:45 04/08/17 07:44 04/02/17 08:39 Nitroglycerin (Ntg) 0.4 mg Q5M X 3 DOSES PRN SL Prn Chest Pain 04/01/17 07:45 05/01/17 07:44 Ondansetron HCl (Zofran) 4 mg Q6H PRN IVP Nausea & Vomiting 04/01/17 07:45 05/01/17 07:44 04/01/17 19:46 Pantoprazole (Protonix) 40 mg DAILY IV 04/01/17 09:00 05/01/17 08:59 04/02/17 08:40 Polyethylene Glycol (Miralax) 17 gm HSPRN PRN ORAL Constipation 04/01/17 07:45 05/01/17 07:44 Promethazine HCl (Phenergan) 25 mg EVERY 8 HOURS PRN IV refractory nausea 04/01/17 07:45 05/01/17 07:44 Temazepam (Restoril) 15 mg HSPRN PRN ORAL Insomnia 04/01/17 07:45 04/08/17 07:44 Carol Wakefield NP (Vanchtein) Apr 02, 2017 15:18
[2017-04-02 16:00] VITALS: BP 103/71
[2017-04-02] MEDS: Norco 5mg/325mg tab ORAL PRN (17:30)
[2017-04-02 20:00] VITALS: BP 114/71
[2017-04-03] VITALS: BP 108/62
[2017-04-03] MEDS: D5 1/2NS 1,000 ML IV SCH ×2 (01:16→13:07)
[2017-04-03] MEDS: Norco 5mg/325mg tab ORAL PRN ×3 (01:16→13:06)
[2017-04-03 04:00] VITALS: BP 104/60
[2017-04-03 07:32] LABS: BASOPHILS % (AUTO) 0.8 % (0.0-2.0); EOSINOPHILS % (AUTO) 2.3 % (0.0-3.0); HEMATOCRIT 37.5 % (37.0-47.0); HEMOGLOBIN 12.5 G/DL (12.0-16.0); LYMPHOCYTES % (AUTO) 31.5 % (20.0-45.0); MEAN CORPUSCULAR VOLUME 98 FL (80-99); MONOCYTES % (AUTO) 7.4 % (1.0-10.0); PLATELET COUNT 197 K/UL (150-450); RED BLOOD COUNT 3.83 M/UL (4.20-5.40); WHITE BLOOD COUNT 5.7 K/UL (4.8-10.8)
[2017-04-03 07:59] LABS: ANION GAP 8 mmol/L (5-15); BLOOD UREA NITROGEN 8 mg/dL (7-18); CALCIUM 7.4 MG/DL (8.5-10.1); CARBON DIOXIDE 23 MMOL/L (21-32); CHLORIDE 108 MMOL/L (98-107); CREATININE 0.6 MG/DL (0.55-1.30); POTASSIUM 3.8 MMOL/L (3.5-5.1); SODIUM 139 MMOL/L (136-145)
[2017-04-03 08:00] VITALS: BP 93/60
--- NOTE | 2017-04-03 08:30 | Consultation ---
DATE OF CONSULTATION: 04/01/2017 CONSULTING PHYSICIAN: Richy Jose M.D. REASON FOR CONSULTATION: Pain. REQUESTING PHYSICIAN: Cuca Hernandez M.D. HISTORY OF PRESENT ILLNESS: This is a 61-year-old female, who presented to emergency room complaining of pain on the left flank for 3 days. The pain is localized anterior to the tip of the left 10th rib. This pain is steady without radiation. Apparently gets aggravated with movement. It is not related to eating or a bowel movement. There is no dysuria or frequency. She denies any fever, cough, dysuria, or frequency. Previous history, she denies head trauma. She has been nauseated, but no vomiting. She had a normal bowel movement yesterday. PAST MEDICAL HISTORY: She denies allergies, diabetes, hypertension, cardiac and renal diseases. She has a history of asthma. PAST SURGICAL HISTORY: Include laparoscopy gastric bypass. At the same time, a cholecystectomy had been performed and he has had an open hysterectomy. MEDICATIONS: Please see the medicine reconciliation form. SOCIAL HISTORY: The patient is a 61-year-old female who is , mother of three children, unemployed and denies smoking and drinking. REVIEW OF SYSTEMS: Noncontributory. PHYSICAL EXAMINATION: GENERAL: The patient appeared to be a well-developed and well-nourished 61-year-old female, lying in bed, in no acute distress. HEENT: Head is normocephalic and atraumatic. Eyes, pupils are equal, round, and reactive to light. Mouth is clear. NECK: There is no palpable thyromegaly or adenopathy. CHEST: Clear to auscultation and effusion. HEART: There is no gallop or murmur. S1 and S2 are within normal limits. ABDOMEN: Soft, flat, nontender. There is no palpable organomegaly and she has a scar of the multiple trocar sites. She has a scar of the transverse suprapubic incision. She has a localized tenderness anterior to the tip of the left 10th rib. GENITAL: Deferred. EXTREMITIES: Within normal limits. LABORATORY DATA: CBC is normal. Chemistry is normal. UA has shown 5 to 10 wbc. CAT scan of the abdomen has been interpreted as possible internal hernia, but there is no obstruction. ASSESSMENT: Pain of the left flank most probably it is the strain of the flank. RECOMMENDATION: I injected the tender area with Marcaine 0.5%, which resulted in the reduction of the pain in this area. At this time, I think that she only requires some ibuprofen and observation. Richy Jose M.D. DR: JUANPABLO JOB#: [id number] CC: ANGELA
[2017-04-03] MEDS: Pantoprazole Inj IV SCH (08:58)
[2017-04-03] MEDS: Heparin 5000 units/ml inj SUBQ SCH (09:01)
[2017-04-03 12:00] VITALS: BP 116/68
--- NOTE | 2017-04-03 12:10 | GI Progress Note ---
Assessment/Plan Problems: (1) Internal hernia ICD Codes: K45.8 - Other specified abdominal hernia without obstruction or gangrene SNOMED: 15508225 (2) Abdominal pain ICD Codes: R10.9 - Unspecified abdominal pain SNOMED: 66238935, 31710337, 237152186, 746719149 Qualifiers: Qualified Codes: R10.9 - Unspecified abdominal pain (3) History of gastric bypass ICD Codes: Z98.84 - Bariatric surgery status SNOMED: 799703865 Status: stable Status Narrative Discussed with Dr. Smith. Assessment/Plan no alarming sign and symptoms eating per surgery recs pain mgmt outpatient GI procedures Subjective Subjective L sided pain tolerating diet Objective Last 24 Hour Vital Signs Date Time Temp Pulse Resp B/P (MAP) Pulse Ox O2 Delivery O2 Flow Rate FiO2 04/03/17 08:00 97.4 80 16 93/60 97 04/03/17 07:57 98.4 04/03/17 04:00 98.4 64 20 104/60 97 Room Air 04/03/17 00:00 98.3 58 18 108/62 98 Room Air 04/02/17 20:00 98.2 59 19 114/71 97 Room Air 04/02/17 16:00 98.4 58 20 103/71 98 Room Air Intake and Output 04/02/17 04/03/17 19:00 07:00 Intake Total 750 ml 1380 ml Output Total 3 ml Balance 747 ml 1380 ml Intake Oral 480 ml IV Total 750 ml 900 ml Output Urine Total 3 ml # Voids 2 Laboratory Tests Test 04/03/17 04:55 White Blood Count 5.7 K/UL (4.8-10.8) Red Blood Count 3.83 M/UL (4.20-5.40) L Hemoglobin 12.5 G/DL (12.0-16.0) Hematocrit 37.5 % (37.0-47.0) Mean Corpuscular Volume 98 FL (80-99) Mean Corpuscular Hemoglobin 32.7 PG (27.0-31.0) H Mean Corpuscular Hemoglobin Concent 33.4 G/DL (32.0-36.0) Red Cell Distribution Width 12.0 % (11.6-14.8) Platelet Count 197 K/UL (150-450) Mean Platelet Volume 8.5 FL (6.5-10.1) Neutrophils (%) (Auto) 58.0 % (45.0-75.0) Lymphocytes (%) (Auto) 31.5 % (20.0-45.0) Monocytes (%) (Auto) 7.4 % (1.0-10.0) Eosinophils (%) (Auto) 2.3 % (0.0-3.0) Basophils (%) (Auto) 0.8 % (0.0-2.0) Sodium Level 139 MMOL/L (136-145) Potassium Level 3.8 MMOL/L (3.5-5.1) Chloride Level 108 MMOL/L (98-107) H Carbon Dioxide Level 23 MMOL/L (21-32) Anion Gap 8 mmol/L (5-15) Blood Urea Nitrogen 8 mg/dL (7-18) Creatinine 0.6 MG/DL (0.55-1.30) Estimat Glomerular Filtration Rate > 60 mL/min (>60) Glucose Level 93 MG/DL (74-106) Calcium Level 7.4 MG/DL (8.5-10.1) L Height (Feet): 5 Height (Inches): 4.00 Weight (Pounds): 165 General Appearance: WD/WN, no apparent distress, alert Cardiovascular: normal rate Respiratory/Chest: normal breath sounds, no respiratory distress Abdominal Exam: normal bowel sounds, non tender, soft Extremities: normal range of motion, non-tender Yanique Contreras N.P. Apr 03, 2017 12:10
--- NOTE | 2017-04-03 15:11 | General Surgery Progress Note ---
General Surgery-Progress Note Subjective Symptoms: pain same, tolerating diet Objective Last 24 Hour Vital Signs Date Time Temp Pulse Resp B/P (MAP) Pulse Ox O2 Delivery O2 Flow Rate FiO2 04/03/17 14:05 97.4 04/03/17 12:00 97.7 55 17 116/68 97 04/03/17 08:00 97.4 80 16 93/60 97 04/03/17 04:00 98.4 64 20 104/60 97 Room Air 04/03/17 00:00 98.3 58 18 108/62 98 Room Air 04/02/17 20:00 98.2 59 19 114/71 97 Room Air 04/02/17 16:00 98.4 58 20 103/71 98 Room Air I&O Intake and Output 04/02/17 04/03/17 19:00 07:00 Intake Total 750 ml 1380 ml Output Total 3 ml Balance 747 ml 1380 ml Intake Oral 480 ml IV Total 750 ml 900 ml Output Urine Total 3 ml # Voids 2 Respiratory: clear Abdomen: soft, flat, non-tender, present bowel sounds, other - tenderness at tip of left 10th rib Extremities: no tenderness Laboratory Tests Test 04/03/17 04:55 White Blood Count 5.7 K/UL (4.8-10.8) Red Blood Count 3.83 M/UL (4.20-5.40) L Hemoglobin 12.5 G/DL (12.0-16.0) Hematocrit 37.5 % (37.0-47.0) Mean Corpuscular Volume 98 FL (80-99) Mean Corpuscular Hemoglobin 32.7 PG (27.0-31.0) H Mean Corpuscular Hemoglobin Concent 33.4 G/DL (32.0-36.0) Red Cell Distribution Width 12.0 % (11.6-14.8) Platelet Count 197 K/UL (150-450) Mean Platelet Volume 8.5 FL (6.5-10.1) Neutrophils (%) (Auto) 58.0 % (45.0-75.0) Lymphocytes (%) (Auto) 31.5 % (20.0-45.0) Monocytes (%) (Auto) 7.4 % (1.0-10.0) Eosinophils (%) (Auto) 2.3 % (0.0-3.0) Basophils (%) (Auto) 0.8 % (0.0-2.0) Sodium Level 139 MMOL/L (136-145) Potassium Level 3.8 MMOL/L (3.5-5.1) Chloride Level 108 MMOL/L (98-107) H Carbon Dioxide Level 23 MMOL/L (21-32) Anion Gap 8 mmol/L (5-15) Blood Urea Nitrogen 8 mg/dL (7-18) Creatinine 0.6 MG/DL (0.55-1.30) Estimat Glomerular Filtration Rate > 60 mL/min (>60) Glucose Level 93 MG/DL (74-106) Calcium Level 7.4 MG/DL (8.5-10.1) L Assessment Additional Comments R/O costo chondritis Plan Additional Comments requires Ibuprofen I will sign off KARISSA KAY Apr 03, 2017 15:11
[2017-04-03 16:00] VITALS: BP 119/71
--- NOTE | 2017-04-03 16:47 | Pulmonology Progress Note ---
Assessment/Plan Problems: (1) History of gastric bypass (2) Internal hernia (3) Abdominal pain Assessment/Plan all studies negative seen by surgeon, all cleared tolerating diet dc home with symptomatic treatment Subjective ROS Limited/Unobtainable: No Constitutional: Reports: no symptoms HEENT: Repors: no symptoms Respiratory: Reports: no symptoms Allergies: Coded Allergies: LATEX (Unverified Allergy, Unknown, rash, 04/21/15) Objective Last 24 Hour Vital Signs Date Time Temp Pulse Resp B/P (MAP) Pulse Ox O2 Delivery O2 Flow Rate FiO2 04/03/17 14:05 97.4 04/03/17 12:00 97.7 55 17 116/68 97 04/03/17 12:00 97 Room Air 04/03/17 08:00 97.4 80 16 93/60 97 04/03/17 08:00 97 Room Air 04/03/17 04:00 98.4 64 20 104/60 97 Room Air 04/03/17 00:00 98.3 58 18 108/62 98 Room Air 04/02/17 20:00 98.2 59 19 114/71 97 Room Air Intake and Output 04/02/17 04/03/17 19:00 07:00 Intake Total 750 ml 1380 ml Output Total 3 ml Balance 747 ml 1380 ml Intake Oral 480 ml IV Total 750 ml 900 ml Output Urine Total 3 ml # Voids 2 General Appearance: WD/WN HEENT: normocephalic, atraumatic Respiratory/Chest: chest wall non-tender, lungs clear, chest wall tender Cardiovascular: normal peripheral pulses Genitourinary: normal external genitalia Extremities: no cyanosis Neurologic/Psychiatric: exchange consultant II-XII grossly normal Laboratory Tests 04/03/17 04:55: White Blood Count 5.7, Red Blood Count 3.83L, Hemoglobin 12.5, Hematocrit 37.5, Mean Corpuscular Volume 98, Mean Corpuscular Hemoglobin 32.7H, Mean Corpuscular Hemoglobin Concent 33.4, Red Cell Distribution Width 12.0, Platelet Count 197, Mean Platelet Volume 8.5, Neutrophils (%) (Auto) 58.0, Lymphocytes (%) (Auto) 31.5, Monocytes (%) (Auto) 7.4, Eosinophils (%) (Auto) 2.3, Basophils (%) (Auto ) 0.8, Sodium Level 139, Potassium Level 3.8, Chloride Level 108H, Carbon Dioxide Level 23, Anion Gap 8, Blood Urea Nitrogen 8, Creatinine 0.6, Estimat Glomerular Filtration Rate > 60, Glucose Level 93, Calcium Level 7.4L Current Medications Medications (Trade) Dose Ordered Sig/Lorna Route PRN Reason Start Time Stop Time Status Last Admin Dose Admin Acetaminophen (Tylenol) 650 mg Q4H PRN ORAL fever 04/02/17 07:45 05/02/17 07:44 Acetaminophen/ Hydrocodone Bitart (Prince 5/325) 1 tab Q6H PRN ORAL Moderate Pain (Pain Scale 4-6) 04/02/17 17:30 04/09/17 23:59 04/03/17 13:06 Al Hydroxide/Mg Hydroxide (Mylanta II) 30 ml Q6H PRN ORAL dyspepsia 04/01/17 07:45 05/01/17 07:44 Dextrose (Dextrose 50%) STAT PRN IV Hypoglycemia 04/01/17 07:45 05/01/17 07:44 Dextrose/Sodium Chloride 1,000 ml @ 75 mls/hr [id number] IV 04/01/17 08:30 05/01/17 08:29 04/03/17 13:07 Diphenhydramine HCl (Benadryl) 25 mg Q6H PRN ORAL Itching/Pruritis 04/01/17 07:45 05/01/17 07:44 Heparin Sodium (Porcine) (Heparin 5000 units/ml) 5,000 units EVERY 12 HOURS SUBQ 04/01/17 09:00 05/01/17 08:59 04/03/17 09:01 Lorazepam (Ativan 2mg/ml 1ml) 1 mg EVERY 4 HOURS PRN IV agitation 04/01/17 07:45 04/08/17 07:44 Metoclopramide HCl (Reglan) 10 mg EVERY 6 HOURS PRN IVP servere nauasea 04/01/17 07:45 05/01/17 07:44 Morphine Sulfate (Morphine Sulfate) 2 mg EVERY 4 HOURS PRN IVP severe Pain (Pain Scale 7-10) 04/01/17 07:45 04/08/17 07:44 04/02/17 08:39 Nitroglycerin (Ntg) 0.4 mg Q5M X 3 DOSES PRN SL Prn Chest Pain 04/01/17 07:45 05/01/17 07:44 Ondansetron HCl (Zofran) 4 mg Q6H PRN IVP Nausea & Vomiting 04/01/17 07:45 05/01/17 07:44 04/01/17 19:46 Pantoprazole (Protonix) 40 mg DAILY IV 04/01/17 09:00 05/01/17 08:59 04/03/17 08:58 Polyethylene Glycol (Miralax) 17 gm HSPRN PRN ORAL Constipation 04/01/17 07:45 05/01/17 07:44 Promethazine HCl (Phenergan) 25 mg EVERY 8 HOURS PRN IV refractory nausea 04/01/17 07:45 05/01/17 07:44 Temazepam (Restoril) 15 mg HSPRN PRN ORAL Insomnia 04/01/17 07:45 04/08/17 07:44 BUZZ PERES Apr 03, 2017 16:47
[2017-04-03] MEDS ORDERED: ACETAMINOPHEN-1 EAC1 ORAL (17:04)
[2017-04-03] MEDS ORDERED: D5 1/2NS 1000ml IV ONE (18:19)
--- NOTE | 2017-04-05 10:34 | Diagnostic Imaging Report ---
Indication: Abdominal pain Technique: Ultrasound of the abdomen. Comparison: CT abdomen and pelvis 03/31/2017 Findings: The pancreas is incompletely visualized. Visualized portions are unremarkable. Liver measures 18.6 cm. No gross focal liver lesions are identified. Visualized portions of the main portal vein and the hepatic veins are grossly unremarkable although incompletely evaluated. Gallbladder is absent. The common bile duct measures 5 mm. Bilateral kidneys demonstrate normal echogenicity. There is a small right renal cyst that measures 1.0 cm. There is no hydronephrosis. No echogenic renal stones are identified. The spleen is normal in size and echogenicity. The visualized aorta is normal in caliber. Visualized portions of the inferior vena cava are unremarkable. Impression: No acute abnormality. Cholecystectomy.
--- NOTE | 2017-04-05 10:34 | Diagnostic Imaging Report ---
Indication: Abdominal pain Technique: CT of the abdomen and pelvis utilizing automated exposure control with intravenous contrast. Venous scanning performed. CT dose: Total DLP 787 mGycm; CTDI vol 15.7 mGy Comparison: None Findings: There is atelectasis in the lung bases. A small hiatal hernia is present. Postsurgical changes of gastric bypass are seen. Cholecystectomy clips are noted. The liver, adrenal glands and spleen are unremarkable. There is a tiny hypodensity of the right kidney probably a cyst measuring 4 mm. There is fatty replacement of the pancreas. There is a slight swirled appearance of mesenteric vessels in the left abdomen. The small bowel loops are not dilated at this time. There is no pneumatosis. There is no free intraperitoneal fluid or air. The uterus is absent. There is a small hypodense lesion in the left adnexa measuring 1.9 cm. Atherosclerotic changes are seen. Abdominal aorta is normal in caliber. There is a compression deformity of L1 with vertebral plasty. There is also a compression deformity of T10. Suprapubic ventral hernia probable mesh is noted. Impression: Postsurgical changes of gastric bypass. Slight swirled appearance of the mesenteric vessels in the left abdomen. No obvious obstruction at this time. Possibility of an internal hernia cannot be completely excluded. Follow-up/further evaluation recommended as indicated. Cholecystectomy and hysterectomy. Small hiatal hernia. Other findings of the abdomen and pelvis as above. The CT scanner at [facility] is accredited by the [employer] and the scans are performed using protocols designed to limit radiation exposure to as low as reasonably achievable to attain images of sufficient resolution adequate for diagnostic evaluation.
--- NOTE | 2017-04-05 21:34 | Discharge Summary ---
Discharge Summary Hospital Course Date of Admission Apr 01, 2017 at 01:06 Date of Discharge Apr 03, 2017 at 18:20 Admitting Diagnosis internal hernia HPI Ayesha Barahona is a 61 year old female who was admitted on Apr 01, 2017 at 01:06 for Internal Hernia Hospital Course dc summary #[id number] Discharge Medications Continued Medications: Acetaminophen With Codeine (T#3) (Tylenol #3 Tab*) Y Tab 1 TAB ORAL Q8HR PRN for For Pain, TAB Albuterol Sulfate* (Albuterol Sulfate Mdi*) 8.5 Gm Hfa.aer.ad 2 PUFF INH Q3H, #1 INH 0 Refills Discontinued Medications: Albuterol Sulfate (Ventolin Hfa) 18 Gm Hfa.aer.ad 2 PUFFS INH EVERY 6 HOURS PRN for Shortness of Breath, #18 GM 0 Refills Amoxicillin/Potassium Clav 875-125* (Augmentin 875-125 Tablet*) 1 Each Tablet 1 TAB ORAL TWICE A DAY for 7 Days, #14 TAB Azithromycin* (Zithromax*) 250 Mg Tablet 250 MG ORAL DAILY, #6 TAB 0 Refills Take two tables once daily for 1 day, then one tablet once daily for 4 days. Guaifenesin/Codeine Phosphate (Guaifenesin Ac Cough Syrup) 473 Ml Liquid 1 TSP ORAL Q6H PRN for For Cough, #118 ML 0 Refills Ibuprofen* (Motrin*) 600 Mg Tablet 600 MG ORAL THREE TIMES A DAY, #30 TAB 0 Refills Methylprednisolone (Methylprednisolone*) 4 Mg Tab 4 MG ORAL .as directed, #1 PACK 0 Refills Tramadol Hcl* (Ultram*) 50 Mg Tablet 50 MG ORAL Q6H PRN for For Pain, #30 TAB 0 Refills Discharge Condition Upon Discharge: stable Discharge Disposition Patient was discharged to Home () Discharge Diagnoses: Ashu (Vancderickein),Carol ASSISTED LIVING ASSOCIATE Apr 05, 2017 21:33
--- NOTE | 2017-04-06 20:30 | Discharge Summary 2 SIG ---
DATE OF ADMISSION: 04/01/2017 DATE OF DISCHARGE: 04/03/2017 REASON FOR ADMISSION: 61-year-old female with a past medical history of asthma and gastric bypass, presented to emergency department complaining of left-sided flank and abdominal pain for three days. Pain described as sharp, nonradiating, 10/10 on a scale 1 to 10. She denied fever, chills, chest pain, shortness of breath, nausea, vomiting, or diarrhea. Workup in the emergency room revealed stable vital signs. No leukocytosis. Stable electrolytes, hemoglobin and hematocrit. Urinalysis with pyuria but no bacteria. CAT scan of the abdomen and pelvis revealed evidence of gastric bypass. No high-grade obstruction, stretching of mesentery and mesenteric vessels noted. Findings were suspicious for internal hernia. Surgeon was consulted, and the patient was admitted with diagnoses of internal hernia, abdominal pain, status post gastric bypass, and asthma. HOSPITAL COURSE: The patient was admitted. Surgery and GI consults were requested. Surgeon seen and evaluated the patient, reviewed images and stated initially that the pain at the left flank was most probably due to muscle strain at the flank. Patient was injected with Marcaine 0.5%, which resulted in the reduction of the pain at that time. Per Surgery, the patient likely will require only observation and pain management. The patient had a bowel movement. No nausea, 1 episode of vomiting after analgesics was given. Next day, 04/02/17, abdomen was soft, nontender with localized tenderness at the tip of the left tenth rib. Patient was injected with Marcaine and Depo-Medrol and started on diet as tolerated. On 04/03/2017, the patient was able to tolerate diet. Pain resolved. No further nausea, vomiting, had bowel movement. The patient probably had costochondritis as per Surgery and needs pain management with nonsteroidal anti-inflammatory medications. Surgeon cleared the patient for discharge. Internal hernia was ruled out. Pain resolved. Respiratory status was stable. Pulse oximetry stable on room air. DVT prophylaxis provided. The patient was stable for discharge. FINAL DIAGNOSES: 1. Abdominal pain. 2. Left flank pain likely due to muscle strain. 3. Probable costochondritis. 4. History of asthma. DISCHARGE MEDICATIONS: See medication reconciliation list. DISCHARGE INSTRUCTIONS: The patient discharged home. Follow up with primary medical doctor. Cuca Hernandez M.D. Carol CullenDarshan castro DR: MABEL JOB#: [id number] CC: ANGELA
== END 2017-04-03 18:20 | disposition home or self-care (01) | DRG 351 ==
LOC: EMR 20:30 → 4E 04-01 01:06 → EDBEDREQ 04-01 01:47 → 3E 04-01 06:49
DX: S39.011A Strain of muscle, fascia and tendon of abdomen, initial encounter (principal); J45.909 Unspecified asthma, uncomplicated; M94.0 Chondrocostal junction syndrome [Tietze]; Z98.84 Bariatric surgery status; Z90.710 Acquired absence of both cervix and uterus; Z90.49 Acquired absence of other specified parts of digestive tract; X58.XXXA Exposure to other specified factors, initial encounter; Y92.9 Unspecified place or not applicable
CPT/HCPCS: 36415; 74177; 76700; 80048; 80053; 81003; 82150; 83690; 85025; 85730; 99285; J2405

== ENCOUNTER 2019-02-08 18:11 | Emergency (ER) | payer MEDICAID ==
[~2019-02-08] VITALS: Ht 162.6 cm; Wt 74.8 kg
[~2019-02-08 18:11] MED LIST changes: +ACETAMINOPHEN-1 EAC1 ORAL; +NKM
--- NOTE | 2019-02-08 18:34 | NUR ---
ED Nurse Note: Pt walked into ED c/o constant pain on R side of back. Radiates to R leg. Pt is alert and orientedx4. Pt denies numbness/tingling. Pt states she has had pain since yesterday 01/03. MD notified of pain.
[2019-02-08 18:37] VITALS: BP 120/80
[2019-02-08] MEDS ORDERED: Ketorolac 30mg Inj IM ONE (18:45)
--- NOTE | 2019-02-08 18:55 | Emergency Room Report ---
History of Present Illness General Chief Complaint: Pain Source: Patient Present Illness HPI 63-year-old female with chronic history of right-sided sciatica times several years here complaining of 2 days of sciatica exacerbation. Patient has not recently been to her primary care physician nor has she received pain management. Patient has been taking [id number] Profen Tylenol with minimal relief. Patient reports that her pain is worse when sitting and standing. Rating the pain 10 out of 10 with radiation to the right foot denying any tingling and numbness at this time. Denies any urinary bowel incontinence. Denies saddle paresthesia. Denies recent fall or injury. 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 Patient sitting comfortably with stable vital signs. Denies other associated symptoms. Blood pressure is slightly elevated however reports that it is secondary to pain and denies any chest pain, shortness of breath, palpitation, headache and dizziness, blurry vision. Allergies: Coded Allergies: LATEX (Unverified Allergy, Unknown, rash, 04/21/15) Patient History Past Medical History: see triage record Past Surgical History: unable to obtain Pertinent Family History: none Last Menstrual Period: n/a Now: No Immunizations: UTD Reviewed Nursing Documentation: PMH: Agreed; PSxH: Agreed Nursing Documentation-PMH Past Medical History: No History, Except For Hx Asthma: Yes Review of Systems All Other Systems: negative except mentioned in HPI Physical Exam Vital Signs Date Time Temp Pulse Resp B/P (MAP) Pulse Ox O2 Delivery O2 Flow Rate FiO2 02/08/19 18:18 97.7 62 18 128/77 (94) 97 Room Air Sp02 EP Interpretation: reviewed, normal General Appearance: no apparent distress, alert, GCS 15, non-toxic Head: normocephalic, atraumatic ENT: hearing grossly normal, normal pharynx, no angioedema, normal voice Neck: full range of motion, supple/symm/no masses Respiratory: chest non-tender, lungs clear, normal breath sounds, no rhonchi, no retraction, no wheezing, speaking full sentences Cardiovascular #1: regular rate, rhythm, no edema, no murmur, normal capillary refill Gastrointestinal: normal inspection, normal bowel sounds, non tender, soft Genitourinary: no CVA tenderness Musculoskeletal: digits/nails normal, gait/station normal, non-tender, no calf tenderness, pelvis stable, other - Straight leg test positive right side Neurologic: alert, oriented x3, responsive, motor strength/tone normal, sensory intact, speech normal Psychiatric: judgement/insight normal, memory normal, mood/affect normal, no suicidal/homicidal ideation Skin: no rash Lymphatic: no adenopathy Medical Decision Making PA Attestation All diagnoses and treatment plans were reviewed and discussed with my supervising physician Dr. Martínez Diagnostic Impression: Primary Impression: Sciatica ER Course 63-year-old female with chronic history of right-sided sciatica times several years here complaining of 2 days of sciatica exacerbation. Patient has not recently been to her primary care physician nor has she received pain management. Patient has been taking [id number]-[id number] Profen Tylenol with minimal relief. Patient reports that her pain is worse when sitting and standing. Rating the pain 10 out of 10 with radiation to the right foot denying any tingling and numbness at this time. Denies any urinary bowel incontinence. Denies saddle paresthesia. Denies recent fall or injury. 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 Patient sitting comfortably with stable vital signs. Denies other associated symptoms. Blood pressure is slightly elevated however reports that it is secondary to pain and denies any chest pain, shortness of breath, palpitation, headache and dizziness, blurry vision. Ddx considered but are not limited to: Sciatica ,lumbar spine sprain, strain, fracture, contusion, neuropathy Vital signs: are WNL, pt. is afebrile H&PE are most consistent with: sciatica chronic right site ORDERS: No x-ray necessary as this is chronic , Robaxin, ibuprofen, lidocaine patch ER intervention: Toradol DISCHARGE: At this time pt. is stable for d/c to home. Will provide printed patient care instructions, and any necessary prescriptions. Care plan and follow up instructions have been discussed with the patient prior to discharge. Patient to follow-up with her primary care provider for therapy and worsening symptoms return to emergency room Last Vital Signs Date Time Temp Pulse Resp B/P (MAP) Pulse Ox O2 Delivery O2 Flow Rate FiO2 02/08/19 18:37 97.7 68 20 120/80 97 Room Air Disposition: HOME, SELF-CARE Condition: Stable Scripts Lidocaine Patch* (Lidoderm Patch*) 1 Each Adh..patch 1 PATCH TOPIC DAILY, #7 PATCH 0 Refills Patch(es) may remain in place for up to 12 hours in any 24-hour period. Prov: Iker Au 02/08/19 Methocarbamol* (ROBAXIN-750*) 750 Mg Tablet 750 MG PO TID, #21 TAB 0 Refills Prov: Iker Au 02/08/19 Ibuprofen (Ibu) 800 Mg Tablet 800 MG PO TID, #21 TAB Prov: Iker Au 02/08/19 Patient Instructions: Sciatica, [id number] Additional Instructions: Follow-up with your primary care provider for referral to physical therapy as your sciatic pain is chronic and keeps reoccurring you need further assessment at this time no imaging is needed this is a chronic issue. If worsening symptoms return to the emergency room Iker Au Feb 08, 2019 18:55
[2019-02-08] MEDS ORDERED: LIDODERM700 M1 TOPIC (18:56)
[2019-02-08] MEDS ORDERED: IBU800 MG PO (18:56)
[2019-02-08] MEDS ORDERED: ROBAXIN-750750 MG PO (18:56)
[2019-02-08 19:02] VITALS: BP 106/78
--- NOTE | 2019-02-08 19:03 | NUR ---
ED Nurse Note: Pt cleared by health care Provider for discharge. DC instructions/prescription was given and explained to pt and verbalized understanding of teachings. All medical deviecs such as ID band removed. Pt is AAO x4, ambulatory and left with all personal belongings.
== END 2019-02-08 19:02 | disposition home or self-care (01) ==
LOC: EMR 18:55
DX: M54.31 Sciatica, right side (principal); J45.909 Unspecified asthma, uncomplicated; Z91.040 Latex allergy status
CPT/HCPCS: 96372; J1885; Z7502; 99283

== ENCOUNTER 2019-02-11 14:40 | Emergency (ER) | payer MEDICAID ==
[~2019-02-11] VITALS: Ht 162.6 cm; Wt 74.8 kg
[~2019-02-11 14:40] MED LIST changes: +IBU800 MG PO; +LIDODERM700 M1 TOPIC; +ROBAXIN-750750 MG PO
[2019-02-11 14:56] VITALS: BP 111/74
--- NOTE | 2019-02-11 14:59 | NUR ---
ER Nurse Note: Pt walked in c/o RT lower back pain since last week. Pt stated 10 sharp and aching pain; worse with movement. Pain localized. Cap refill less than 3 secs on all extremities. Pt stated she was at [facility] [place] for RT lower back pain 02/08 and is currenly taking the prescribed meds but not effective. Pt made an appointment with PCP on 02/19 but pain got too intense and returned.
[2019-02-11] MEDS ORDERED: MEDROL DOSEPAK4 MG ORAL (15:26)
[2019-02-11] MEDS ORDERED: TRAMADOL HCL50 MG ORAL (15:26)
[2019-02-11 15:35] VITALS: BP 111/74
--- NOTE | 2019-02-11 15:35 | NUR ---
ER Nurse Note: Patient seen, treated, medically cleared to be discharged per ERMD. Discharge instructions and prescriptons given with repeat verbalization by pt. Instructed pt to follow up with primary care physican within one week. Pt is aox4, on room air, with stable vital signs. Education pt on body mechanics and alternative ways to relieve back pain. ID band removed. Pt ambulatory; left with all belongings.
--- NOTE | 2019-02-11 18:41 | Emergency Room Report ---
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 with bending forward and sitting down and standing the pain has exacerbated Denies any other acute fall or trauma denies any fevers or chills Denies any saddle paresthesia Denies any mid or upper back pain Allergies: Coded Allergies: LATEX (Unverified Allergy, Unknown, rash, 04/21/15) Patient History Past Medical History: see triage record Last Menstrual Period: 1993 Reviewed Nursing Documentation: PMH: Agreed; PSxH: Agreed Nursing Documentation-PMH Past Medical History: No History, Except For Hx Asthma: Yes Review of Systems All Other Systems: negative except mentioned in HPI Physical Exam Vital Signs Date Time Temp Pulse Resp B/P (MAP) Pulse Ox O2 Delivery O2 Flow Rate FiO2 02/11/19 14:47 98.1 62 19 111/74 (86) 100 Room Air Sp02 EP Interpretation: reviewed, normal General Appearance: well appearing, no apparent distress Head: normocephalic, atraumatic Eyes: bilateral eye PERRL, bilateral eye EOMI ENT: hearing grossly normal, normal pharynx Neck: supple Respiratory: lungs clear, no respiratory distress, no retraction Cardiovascular #1: regular rate, rhythm Musculoskeletal: other - Discomfort is palpable at the right posterior superior iliac crest, patient otherwise is ambulatory, she describes increased discomfort with ambulation Neurologic: alert, oriented x3, responsive Skin: no rash Lymphatic: no adenopathy Medical Decision Making Diagnostic Impression: Primary Impression: sciatica Additional Impression: Low back pain ER Course Given the history presentation and findings appears to be consistent with likely sciatic flare Other differentials such as neurological neurosurgical differentials entertained as well however the clinical exam does not correlate with this I feel patient will benefit from Medrol Dosepak as well and requires appropriate close outpatient follow-up Last Vital Signs Date Time Temp Pulse Resp B/P (MAP) Pulse Ox O2 Delivery O2 Flow Rate FiO2 02/11/19 15:35 98.1 62 18 111/74 100 Room Air Status: unchanged Disposition: HOME, SELF-CARE Condition: Stable Scripts Tramadol Hcl* (ULTRAM*) 50 Mg Tablet 50 MG ORAL Q6H PRN for For Pain, #10 TAB 0 Refills Prov: Jana Smith DO 02/11/19 Methylprednisolone (Methylprednisolone*) 4MG Dspk 4 MG ORAL DIRECTED for 6 Days, #21 EA 0 Refills Day 1: Two tablets before breakfast, one after lunch, one after dinner, and two at bedtime. If started late in the day, take all six tablets at once or divide into two or three doses, unless otherwise directed by prescriber. Day 2: One tablet before breakfast, one after lunch, one after dinner, and two at bedtime Day 3: One tablet before breakfast, one after lunch, one after dinner, and one at bedtime Day 4: One tablet before breakfast, one after lunch, and one at bedtime Day 5: One tablet before breakfast and one at bedtime Day 6: One tablet before breakfast Prov: Jana Smith DO 02/11/19 Departure Forms: Return to Work Return to Work in (Days): 2 Return to Work Date: Feb 13, 2019 Other Restrictions: limited bending, limited weight lifting for 3-5 days Patient Instructions: Back Pain, Adult, Sciatica, [id number] Additional Instructions: Please follow-up with appropriate Worker's Comp. clinic. 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 Please note that this report is being documented using [email or web address] technology. This can lead to erroneous entry secondary to incorrect interpretation by the dictating instrument. Jana Smith DO Feb 11, 2019 18:41
== END 2019-02-11 15:35 | disposition home or self-care (01) ==
LOC: EMR 15:04
DX: M54.40 Lumbago with sciatica, unspecified side (principal); Z91.040 Latex allergy status
CPT/HCPCS: 99282